=== PATIENT | male | born 1965 | race Caucasian/White ===

== ENCOUNTER 2021-03-11 16:18 | Emergency (ER) | payer BC, SELFPAY ==
[2021-03-12 12:28] LABS: SARS-CoV-2 PCR by NAA Not Detected (NotDetected)
== END 2021-03-11 16:43 | disposition home or self-care (01) ==
LOC: BURERS 16:18
DX: R05.9 Cough, unspecified (principal); I10 Essential (primary) hypertension; E78.5 Hyperlipidemia, unspecified; E11.9 Type 2 diabetes mellitus without complications; Z20.822 Contact with and (suspected) exposure to COVID-19
CPT/HCPCS: 99284; U0003; U0005

== ENCOUNTER 2025-01-29 16:32 | Emergency (ER) | payer BC ==
[2025-01-29] MEDS ORDERED: Aspirin Chewable 81 MG TAB ONE (17:06)
[2025-01-29 17:16] LABS: #Basophils 0.1 thou/uL (0.0-0.2); #Eosinophils 0.2 thou/uL (0.0-0.7); #Lymphocytes 1.9 thou/uL (1.20-3.40); #Monocytes 1.0 thou/uL (0.11-0.59); #Neutrophils 7.0 thou/uL (1.40-6.50); %Basophils 1.0 % (0.0-1.0); %Eosinophils 1.9 % (0.0-10.0); %Lymphocytes 19.0 % (21.0-51.0); %Monocytes 9.6 % (0.0-10.0); %Neutrophils 68.6 % (42.0-75.0); Hematocrit 53.0 % (42.0-52.0); Hemoglobin 17.1 g/dL (14.0-18.0); Mean Corpuscular Hemoglobin 28.5 pg (27.0-31.0); Mean Corpuscular Volume 88.4 fl (78.0-98.0); Platelet Count 223 10x3/uL (130-400); Red Blood Cell (RBC) Count 6.00 mill/uL (4.70-6.10); White Blood Cell (WBC) Count 10.2 10x3/uL (4.8-10.8)
[2025-01-29 17:27] LABS: INR-International Normal Ratio 1.0; PTT 32.5 sec (22.9-36.1); Prothrombin Time 12.8 sec (12.0-14.7)
[2025-01-29 17:33] LABS: ALT (SGPT) 43 U/L (Less than 45); AST (SGOT) 25 U/L (11-34); Albumin 4.2 g/dL (3.1-4.5); Alkaline Phosphatase 98 U/L (40-110); Anion Gap 17 mmol/L (10-20); BUN (Urea Nitrogen) 17 mg/dL (8.4-25.7); Bilirubin, Total 0.3 mg/dL (0.3-1.2); Calc. Creatinine Clearance 0 mL/min (70-130); Calcium 10.0 mg/dL (7.8-10.44); Carbon Dioxide 22 mmol/L (22-29); Chloride 105 mmol/L (98-107); Globulin 3.2 g/dL (2.4-3.5); Glucose 187 mg/dL (70-105); Potassium 4.0 mmol/L (3.5-5.1); Sodium 140 mmol/L (136-145)
== END 2025-01-29 20:10 | disposition left against medical advice (07) ==
LOC: BURERS 16:32
DX: I63.9 Cerebral infarction, unspecified (principal); E11.9 Type 2 diabetes mellitus without complications; I10 Essential (primary) hypertension; Z79.899 Other long term (current) drug therapy; Z79.84 Long term (current) use of oral hypoglycemic drugs
CPT/HCPCS: 70450; 70496; 70498; 80053; 85025; 85610; 85730; 93005; 94760